=== PATIENT | male | born 1960 | race Hispanic/Latino ===

== ENCOUNTER 2023-01-10 10:12 | Inpatient (IN) | payer OTHER ==
[2023-01-10 10:46] LABS: #Basophils 0.1 thou/uL (0.0-0.2); #Eosinphils 0.1 thou/uL (0.0-0.7); #Monocytes 0.7 thou/uL (0.11-0.59); #Neutrophils 4.9 thou/uL (1.40-6.50); %Basophils 0.7 % (0.0-1.0); %Lymphocytes 30.2 % (21.0-51.0); %Monocytes 8.8 % (0.0-10.0); %Neutrophils 59.1 % (42.0-75.0); Hematocrit 42.1 % (42.0-52.0); Hemoglobin 13.9 g/dL (14.0-18.0); Mean Corpuscular Hemoglobin 28.3 pg (27.0-31.0); Mean Corpuscular Volume 85.6 fl (78.0-98.0); Mean Platelet Volume 9.6 fL (7.4-10.4); Platelet Count 211 10x3/uL (130-400); RBC Distribution Width 13.4 % (11.5-14.5); Red Blood Cell (RBC) Count 4.92 mill/uL (4.70-6.10); White Blood Cell (WBC) Count 8.3 10x3/uL (4.8-10.8)
[2023-01-10 11:07] LABS: ALT (SGPT) 82 U/L (8-55); AST (SGOT) 85 U/L (5-34); Alkaline Phosphatase 119 U/L (40-110); Anion Gap 12 mmol/L (10-20); BUN (Urea Nitrogen) 10 mg/dL (8.4-25.7); Calc. Creatinine Clearance 0 mL/min (70-130); Calcium 9.3 mg/dL (7.8-10.44); Carbon Dioxide 28 mmol/L (23-31); Chloride 99 mmol/L (98-107); Estimated GFR 97; Globulin 4.5 g/dL (2.4-3.5); Glucose 113 mg/dL (80-115); Potassium 3.8 mmol/L (3.5-5.1); Protein, Total 8.5 g/dL (5.8-8.1); Sodium 135 mmol/L (136-145)
[2023-01-10 11:12] LABS: Troponin I Less than 0.010 ng/mL (< 0.028)
[2023-01-10] MEDS ORDERED: hydrALAZINE 20 MG/ML VIAL ONE (11:20)
[2023-01-10] MEDS ORDERED: Nitroglycerin 0.4 MG TAB (25 Tab Bottle) SL PRN (14:05)
[2023-01-10] MEDS ORDERED: Ondansetron PF 4 MG/2 ML Vial IVP PRN (14:08)
[2023-01-10] MEDS ORDERED: Ondansetron ODT 4 MG TAB PO PRN (14:08)
[2023-01-10] MEDS ORDERED: Lorazepam 1 MG TAB PO PRN (14:13)
[2023-01-10] MEDS ORDERED: Lorazepam 2 MG/ML VIAL IM PRN (14:13)
[2023-01-10] MEDS ORDERED: Lisinopril 5 MG TAB PO SCH (14:15)
[2023-01-10] MEDS ORDERED: Electrolyte Replacement Protocol 1 EACH FS SCH (14:15)
[2023-01-10 15:00] LABS: Troponin I Less than 0.010 ng/mL (< 0.028)
[2023-01-10] MEDS ORDERED: Aspirin Chewable 81 MG TAB PO SCH (15:15)
[2023-01-10] MEDS ORDERED: Folic Acid 1 MG TAB PO SCH (15:15)
[2023-01-10] MEDS ORDERED: Multivit, Therapeutic 1 TAB PO SCH (15:15)
[2023-01-10 16:26] LABS: Magnesium 1.8 mg/dL (1.6-2.6); Phosphorus 2.8 mg/dL (2.3-4.7)
[2023-01-10 17:11] VITALS: BMI 26.6
[2023-01-10] MEDS: Thiamine HCl 200 MG/2 ML VIAL SLOW IVP SCH (18:01)
[2023-01-10] MEDS: HYDROcodone/Acetaminophen 5/325 mg Tablet PO PRN (18:24)
[2023-01-10 18:55] LABS: Troponin I 0.039 ng/mL (< 0.028)
[2023-01-10 19:44] LABS: Amphetamine Not Detected (NotDetected); Barbiturates Screen Not Detected (NotDetected); Benzodiazepine Screen Not Detected (NotDetected); Cocaine Metabolite Screen Detected (NotDetected); Methadone Not Detected (NotDetected); Methamphetamine Not Detected (NotDetected); Opiate Screen Not Detected (NotDetected); Oxycodone Screen Not Detected (NotDetected); Phencyclidine (PCP) Not Detected (NotDetected); THC/Cannabinoid Screen Not Detected (NotDetected); Tricyclic Screen Not Detected (NotDetected)
[2023-01-11] MEDS ORDERED: Magnesium 2 GM/50 ML(in water) 2 GM in Premix 1 BAG IVPB SCH (00:45)
[2023-01-11 05:34] LABS: #Basophils 0.1 thou/uL (0.0-0.2); #Eosinphils 0.1 thou/uL (0.0-0.7); #Neutrophils 4.6 thou/uL (1.40-6.50); %Basophils 0.6 % (0.0-1.0); %Eosinophils 1.4 % (0.0-10.0); %Lymphocytes 33.1 % (21.0-51.0); %Monocytes 11.1 % (0.0-10.0); %Neutrophils 53.6 % (42.0-75.0); Hematocrit 38.9 % (42.0-52.0); Hemoglobin 12.8 g/dL (14.0-18.0); Mean Corpuscular HGB CONC 32.9 g/dL (32.0-36.0); Mean Corpuscular Hemoglobin 28.3 pg (27.0-31.0); Mean Corpuscular Volume 86.1 fl (78.0-98.0); Mean Platelet Volume 9.8 fL (7.4-10.4); Platelet Count 208 10x3/uL (130-400); RBC Distribution Width 13.9 % (11.5-14.5); Red Blood Cell (RBC) Count 4.52 mill/uL (4.70-6.10); White Blood Cell (WBC) Count 8.6 10x3/uL (4.8-10.8)
[2023-01-11 05:56] LABS: Anion Gap 12 mmol/L (10-20); BUN (Urea Nitrogen) 17 mg/dL (8.4-25.7); Calc. Creatinine Clearance 61 mL/min (70-130); Calcium 8.6 mg/dL (7.8-10.44); Carbon Dioxide 25 mmol/L (23-31); Cardiac Risk 4.1 (Less than 4.5); Chloride 104 mmol/L (98-107); Cholesterol 130 mg/dl (< 200 Desired); Estimated GFR 70; Glucose 104 mg/dL (80-115); HDL Cholesterol 32 mg/dL (>60 Neg Risk); LDL Cholesterol, Calculated 74 mg/dL; Magnesium 2.2 mg/dL (1.6-2.6); Potassium 3.6 mmol/L (3.5-5.1); Sodium 137 mmol/L (136-145); Triglycerides 118 mg/dL (Less than 150)
[2023-01-11 06:29] LABS: Phosphorus 3.8 mg/dL (2.3-4.7)
[2023-01-11] MEDS ORDERED: Regadenoson 0.4 MG/5 ML SYRINGE ONE (10:00)
[2023-01-11] MEDS: Aspirin Chewable 81 MG TAB PO SCH (12:26)
[2023-01-11] MEDS: Lisinopril 5 MG TAB PO SCH (12:27)
[2023-01-11] MEDS: Folic Acid 1 MG TAB PO SCH (12:27)
[2023-01-11] MEDS: Multivit, Therapeutic 1 TAB PO SCH (12:28)
[2023-01-11] MEDS: HYDROcodone/Acetaminophen 5/325 mg Tablet PO PRN ×2 (12:30→20:22)
[2023-01-11 13:02] LABS: Syphilis Antibody Index 2.51 S/CO (<1.00 Non-Reactive)
[2023-01-11] MEDS ORDERED: Lorazepam 1 MG TAB PO PRN (14:13)
[2023-01-11 17:15] LABS: Syphilis Antibody INDETERMINATE (Nonreactive)
[2023-01-11] MEDS: Thiamine HCl 200 MG/2 ML VIAL SLOW IVP SCH (17:23)
[2023-01-12 04:38] LABS: #Basophils 0.1 thou/uL (0.0-0.2); #Eosinphils 0.2 thou/uL (0.0-0.7); #Monocytes 0.8 thou/uL (0.11-0.59); #Neutrophils 3.2 thou/uL (1.40-6.50); %Basophils 1.1 % (0.0-1.0); %Eosinophils 3.2 % (0.0-10.0); %Lymphocytes 41.8 % (21.0-51.0); %Monocytes 10.6 % (0.0-10.0); %Neutrophils 43.2 % (42.0-75.0); Hematocrit 38.5 % (42.0-52.0); Hemoglobin 12.6 g/dL (14.0-18.0); Mean Corpuscular HGB CONC 32.7 g/dL (32.0-36.0); Mean Corpuscular Volume 85.6 fl (78.0-98.0); Mean Platelet Volume 10.7 fL (7.4-10.4); Platelet Count 193 10x3/uL (130-400); RBC Distribution Width 13.8 % (11.5-14.5); White Blood Cell (WBC) Count 7.3 10x3/uL (4.8-10.8)
[2023-01-12 05:04] LABS: Anion Gap 12 mmol/L (10-20); BUN (Urea Nitrogen) 15 mg/dL (8.4-25.7); Calc. Creatinine Clearance 85 mL/min (70-130); Calcium 8.5 mg/dL (7.8-10.44); Carbon Dioxide 24 mmol/L (23-31); Chloride 103 mmol/L (98-107); Estimated GFR 97; Glucose 96 mg/dL (80-115); Potassium 3.8 mmol/L (3.5-5.1); Sodium 135 mmol/L (136-145)
[2023-01-12] MEDS ORDERED: Magnesium 2 GM/50 ML(in water) 2 GM in Premix 1 BAG IVPB SCH (08:00)
[2023-01-12] MEDS: Aspirin Chewable 81 MG TAB PO SCH (08:40)
[2023-01-12] MEDS: HYDROcodone/Acetaminophen 5/325 mg Tablet PO PRN (08:40)
[2023-01-12] MEDS: Multivit, Therapeutic 1 TAB PO SCH (08:40)
[2023-01-12] MEDS: Folic Acid 1 MG TAB PO SCH (08:42)
[2023-01-12] MEDS: Lisinopril 5 MG TAB PO SCH (08:42)
[2023-01-12] MEDS ORDERED: Lisinopril 5 MG TAB PO SCH (14:00)
[2023-01-12] MEDS ORDERED: Lorazepam 1 MG TAB PO PRN (14:13)
[2023-01-12] MEDS ORDERED: Communication Order-Pharmacy FS SCH (15:15)
[2023-01-12] MEDS: Thiamine HCl 200 MG/2 ML VIAL SLOW IVP SCH (17:38)
[2023-01-12] MEDS: Acetaminophen 325 MG TAB PO PRN (21:33)
[2023-01-13] MEDS: Acetaminophen 325 MG TAB PO PRN ×2 (04:05→18:21)
[2023-01-13 05:01] LABS: #Basophils 0.1 thou/uL (0.0-0.2); #Eosinphils 0.2 thou/uL (0.0-0.7); #Monocytes 0.8 thou/uL (0.11-0.59); #Neutrophils 3.6 thou/uL (1.40-6.50); %Basophils 0.8 % (0.0-1.0); %Eosinophils 3.1 % (0.0-10.0); %Lymphocytes 38.3 % (21.0-51.0); %Monocytes 10.8 % (0.0-10.0); %Neutrophils 46.7 % (42.0-75.0); Hematocrit 37.6 % (42.0-52.0); Hemoglobin 12.6 g/dL (14.0-18.0); Mean Corpuscular HGB CONC 33.5 g/dL (32.0-36.0); Mean Corpuscular Hemoglobin 29.2 pg (27.0-31.0); Mean Corpuscular Volume 87.2 fl (78.0-98.0); Mean Platelet Volume 9.9 fL (7.4-10.4); Platelet Count 193 10x3/uL (130-400); RBC Distribution Width 13.8 % (11.5-14.5); Red Blood Cell (RBC) Count 4.31 mill/uL (4.70-6.10); White Blood Cell (WBC) Count 7.7 10x3/uL (4.8-10.8)
[2023-01-13 05:35] LABS: Anion Gap 12 mmol/L (10-20); BUN (Urea Nitrogen) 13 mg/dL (8.4-25.7); Calc. Creatinine Clearance 84 mL/min (70-130); Calcium 8.7 mg/dL (7.8-10.44); Carbon Dioxide 22 mmol/L (23-31); Chloride 104 mmol/L (98-107); Estimated GFR 97; Glucose 96 mg/dL (80-115); Potassium 3.9 mmol/L (3.5-5.1); Sodium 134 mmol/L (136-145)
[2023-01-13] MEDS ORDERED: Magnesium 2 GM/50 ML(in water) 2 GM in Premix 1 BAG IVPB SCH (08:00)
[2023-01-13] MEDS: Aspirin Chewable 81 MG TAB PO SCH (08:52)
[2023-01-13] MEDS: Multivit, Therapeutic 1 TAB PO SCH (08:52)
[2023-01-13] MEDS: Folic Acid 1 MG TAB PO SCH (08:52)
[2023-01-13] MEDS: Lisinopril 10 MG TAB PO SCH (11:02)
[2023-01-13] MEDS: hydrALAZINE 20 MG/ML VIAL SLOW IVP PRN ×2 (12:08→21:04)
[2023-01-13] MEDS ORDERED: Lorazepam 0.5 MG TAB PO PRN (14:13)
[2023-01-13 14:56] LABS: HBSAB Concentration Less than 8.00 mIU/mL; HIV (1/2) Antibody/Antigen Non-Reactive (NonReactive); Hep B Surf AB Non-Reactive (NonReactive); Hep B Surf Ag Non-Reactive S/CO (NonReactive)
[2023-01-13 15:01] LABS: Hep C IgG Ab Reflex HepC Qnt S/CO (NonReactive); Hep C Index 14.24 S/CO (0-0.79)
[2023-01-13] MEDS: Thiamine 100 MG TAB PO SCH (18:12)
[2023-01-14 05:02] LABS: #Eosinphils 0.2 thou/uL (0.0-0.7); #Monocytes 0.6 thou/uL (0.11-0.59); #Neutrophils 3.8 thou/uL (1.40-6.50); %Basophils 0.5 % (0.0-1.0); %Eosinophils 2.1 % (0.0-10.0); %Lymphocytes 35.9 % (21.0-51.0); %Monocytes 8.8 % (0.0-10.0); %Neutrophils 52.6 % (42.0-75.0); Hematocrit 41.7 % (42.0-52.0); Hemoglobin 13.9 g/dL (14.0-18.0); Mean Corpuscular HGB CONC 33.3 g/dL (32.0-36.0); Mean Corpuscular Hemoglobin 28.7 pg (27.0-31.0); Mean Corpuscular Volume 86.2 fl (78.0-98.0); Mean Platelet Volume 10.5 fL (7.4-10.4); Platelet Count 231 10x3/uL (130-400); RBC Distribution Width 14.1 % (11.5-14.5); Red Blood Cell (RBC) Count 4.84 mill/uL (4.70-6.10); White Blood Cell (WBC) Count 7.3 10x3/uL (4.8-10.8)
[2023-01-14 05:30] LABS: Anion Gap 12 mmol/L (10-20); BUN (Urea Nitrogen) 10 mg/dL (8.4-25.7); Calc. Creatinine Clearance 92 mL/min (70-130); Calcium 9.2 mg/dL (7.8-10.44); Carbon Dioxide 23 mmol/L (23-31); Chloride 106 mmol/L (98-107); Estimated GFR 100; Glucose 109 mg/dL (80-115); Potassium 3.8 mmol/L (3.5-5.1); Sodium 137 mmol/L (136-145)
[2023-01-14] MEDS: Multivit, Therapeutic 1 TAB PO SCH (07:40)
[2023-01-14] MEDS: Lisinopril 10 MG TAB PO SCH ×2 (07:40→12:01)
[2023-01-14] MEDS: hydrALAZINE 20 MG/ML VIAL SLOW IVP PRN ×2 (07:41→16:16)
[2023-01-14] MEDS: Folic Acid 1 MG TAB PO SCH (07:41)
[2023-01-14] MEDS: Aspirin Chewable 81 MG TAB PO SCH (07:41)
[2023-01-14] MEDS ORDERED: Lisinopril 10 MG TAB PO SCH (11:30)
[2023-01-14] MEDS: Acetaminophen 325 MG TAB PO PRN (12:05)
[2023-01-14] MEDS: Thiamine 100 MG TAB PO SCH (16:16)
[2023-01-15 05:21] LABS: #Basophils 0.1 thou/uL (0.0-0.2); #Eosinphils 0.2 thou/uL (0.0-0.7); #Monocytes 0.8 thou/uL (0.11-0.59); #Neutrophils 4.9 thou/uL (1.40-6.50); %Basophils 0.6 % (0.0-1.0); %Eosinophils 2.6 % (0.0-10.0); %Lymphocytes 31.8 % (21.0-51.0); %Monocytes 9.5 % (0.0-10.0); %Neutrophils 55.3 % (42.0-75.0); Hematocrit 40.8 % (42.0-52.0); Hemoglobin 13.6 g/dL (14.0-18.0); Mean Corpuscular HGB CONC 33.3 g/dL (32.0-36.0); Mean Corpuscular Hemoglobin 28.8 pg (27.0-31.0); Mean Corpuscular Volume 86.4 fl (78.0-98.0); Mean Platelet Volume 10.6 fL (7.4-10.4); Platelet Count 239 10x3/uL (130-400); RBC Distribution Width 14.2 % (11.5-14.5); Red Blood Cell (RBC) Count 4.72 mill/uL (4.70-6.10); White Blood Cell (WBC) Count 8.8 10x3/uL (4.8-10.8)
[2023-01-15 05:44] LABS: Anion Gap 13 mmol/L (10-20); BUN (Urea Nitrogen) 10 mg/dL (8.4-25.7); Calc. Creatinine Clearance 92 mL/min (70-130); Calcium 9.3 mg/dL (7.8-10.44); Carbon Dioxide 24 mmol/L (23-31); Chloride 104 mmol/L (98-107); Estimated GFR 100; Glucose 103 mg/dL (80-115); Potassium 3.9 mmol/L (3.5-5.1); Sodium 137 mmol/L (136-145)
[2023-01-15] MEDS ORDERED: Sodium Chloride 0.9% 1,000 ML IV SCH ×2 (06:00→08:22)
[2023-01-15] MEDS: Multivit, Therapeutic 1 TAB PO SCH (06:11)
[2023-01-15] MEDS: Folic Acid 1 MG TAB PO SCH (06:11)
[2023-01-15] MEDS: Aspirin Chewable 81 MG TAB PO SCH (06:11)
[2023-01-15] MEDS ORDERED: fentaNYL 50 mcg/mL 1 mL Vial ONE (06:14)
[2023-01-15] MEDS ORDERED: Lidocaine 1% (PF) 30 ML VIAL ONE (06:15)
[2023-01-15] MEDS ORDERED: Nitroglycerin 50 MG/250 ML BOT 0 ML ONE (06:15)
[2023-01-15] MEDS ORDERED: Midazolam HCl 2 mg/2 ml Vial ONE (06:15)
[2023-01-15] MEDS ORDERED: Heparin 10,000 UNITS/ 10 ML VIAL ONE ×2 (06:15→07:44)
[2023-01-15] MEDS ORDERED: hydrALAZINE 20 MG/ML VIAL ONE ×2 (07:06→08:56)
[2023-01-15] MEDS ORDERED: Clopidogrel Bisulfate 300 MG TAB ONE (07:38)
[2023-01-15] MEDS ORDERED: Nitroglycerin 50 MG/250 ML BOT 250 ML ONE (08:13)
[2023-01-15] MEDS ORDERED: cloNIDine 0.1 MG TAB PO PRN (08:43)
[2023-01-15] MEDS ORDERED: Ondansetron PF 4 MG/2 ML Vial ONE (08:57)
[2023-01-15] MEDS: hydrALAZINE 20 MG/ML VIAL SLOW IVP PRN (08:59)
[2023-01-15] MEDS ORDERED: HYDROcodone/Acetaminophen 5/325 mg Tablet ONE (09:59)
[2023-01-15] MEDS: HYDROcodone/Acetaminophen 5/325 mg Tablet PO PRN (10:04)
[2023-01-15] MEDS: Thiamine 100 MG TAB PO SCH (16:32)
[2023-01-15] MEDS ORDERED: Atorvastatin Calcium 20 MG TAB PO SCH (21:00)
[2023-01-15] MEDS: Acetaminophen 325 MG TAB PO PRN (21:34)
[2023-01-15] MEDS: Lisinopril 10 MG TAB PO SCH (21:35)
[2023-01-16 05:03] LABS: #Basophils 0.1 thou/uL (0.0-0.2); #Eosinphils 0.2 thou/uL (0.0-0.7); %Basophils 0.5 % (0.0-1.0); %Eosinophils 1.4 % (0.0-10.0); %Lymphocytes 31.8 % (21.0-51.0); %Monocytes 9.6 % (0.0-10.0); %Neutrophils 56.4 % (42.0-75.0); Hematocrit 38.3 % (42.0-52.0); Hemoglobin 12.6 g/dL (14.0-18.0); Mean Corpuscular HGB CONC 32.9 g/dL (32.0-36.0); Mean Corpuscular Volume 88.2 fl (78.0-98.0); Mean Platelet Volume 10.1 fL (7.4-10.4); Platelet Count 217 10x3/uL (130-400); RBC Distribution Width 14.3 % (11.5-14.5); Red Blood Cell (RBC) Count 4.34 mill/uL (4.70-6.10); White Blood Cell (WBC) Count 10.6 10x3/uL (4.8-10.8)
[2023-01-16 05:27] LABS: ALT (SGPT) 60 U/L (8-55); AST (SGOT) 50 U/L (5-34); Albumin 3.5 g/dL (3.4-4.8); Alkaline Phosphatase 98 U/L (40-110); Anion Gap 11 mmol/L (10-20); BUN (Urea Nitrogen) 10 mg/dL (8.4-25.7); Bilirubin, Total 1.4 mg/dL (0.2-1.2); Calc. Creatinine Clearance 73 mL/min (70-130); Calcium 8.9 mg/dL (7.8-10.44); Carbon Dioxide 24 mmol/L (23-31); Chloride 105 mmol/L (98-107); Estimated GFR 86; Glucose 112 mg/dL (80-115); Protein, Total 7.5 g/dL (5.8-8.1); Sodium 136 mmol/L (136-145)
[2023-01-16 07:30] VITALS: TEMP 98.3
[2023-01-16] MEDS: Aspirin Chewable 81 MG TAB PO SCH (08:30)
[2023-01-16] MEDS: Folic Acid 1 MG TAB PO SCH (08:30)
[2023-01-16] MEDS: Multivit, Therapeutic 1 TAB PO SCH (08:30)
[2023-01-16] MEDS: Lisinopril 10 MG TAB PO SCH (08:30)
[2023-01-16] MEDS ORDERED: Clopidogrel Bisulfate 75 MG TAB PO SCH (09:00)
[2023-01-16 09:18] VITALS: BP 168/89
[2023-01-16] MEDS ORDERED: Bicillin LA 2.4 MILL.UNITS/4 ML SYRINGE IM SCH (10:00)
== END 2023-01-16 11:22 | disposition home or self-care (01) | DRG 322 ==
LOC: ERS 10:12 → 2SW 16:48 → OBSVTOIN 01-12 08:51
PROVIDERS: ADMIT Internal Medicine; ATTEND Internal Medicine
PROC: 4A023N7 Measurement of Cardiac Sampling and Pressure, Left Heart, Percutaneous Approach (ICD-10-PCS; principal; 2023-01-15)
PROC: 027034Z Dilation of Coronary Artery, One Artery with Drug-eluting Intraluminal Device, Percutaneous Approach (ICD-10-PCS; 2023-01-15)
PROC: B2151ZZ Fluoroscopy of Left Heart using Low Osmolar Contrast (ICD-10-PCS; 2023-01-15)
PROC: B2111ZZ Fluoroscopy of Multiple Coronary Arteries using Low Osmolar Contrast (ICD-10-PCS; 2023-01-15)
DX: I21.4 Non-ST elevation (NSTEMI) myocardial infarction (principal); E87.1 Hypo-osmolality and hyponatremia; I16.0 Hypertensive urgency; M25.561 Pain in right knee; R74.01 Elevation of levels of liver transaminase levels; F10.10 Alcohol abuse, uncomplicated; F17.210 Nicotine dependence, cigarettes, uncomplicated; M17.11 Unilateral primary osteoarthritis, right knee; Z79.82 Long term (current) use of aspirin; Z79.899 Other long term (current) drug therapy; F14.10 Cocaine abuse, uncomplicated; I10 Essential (primary) hypertension; A53.9 Syphilis, unspecified; B19.20 Unspecified viral hepatitis C without hepatic coma
CPT/HCPCS: 36415; 70450; 71045; 78452; 80048; 80053; 80061; 80306; 83735; 83880; 84100; 84443; 84484; 85025; 85347; 86593; 86706; 86780; 86803; 87340; 87389; 87522; 92928; 93005; 93010; 93017; 93458; 94760; 96365; 96372; 96374; 96375; 96376; 99152; 99153; A9502; C1725; C1769; C1874; C1887; C9600; G0378; J0360; J0561; J1644; J1650; J2001; J2250; J2405; J2785; J3010; J3411; J3475; J7050